=== PATIENT | female | born 1945 | race Caucasian/White ===

== ENCOUNTER → 2025-01-28 10:00 | Outpatient (BNV) | payer MEDICARE, SELFPAY | PROVIDERS: PCP Student in an Organized Health Care Education/Training Program; Referring Provider Student in an Organized Health Care Education/Training Program; Visit Provider Nurse Practitioner Family | DX: D50.9 Iron deficiency anemia, unspecified (principal); R10.811 Right upper quadrant abdominal tenderness | CPT/HCPCS: 99204 ==

== ENCOUNTER 2025-02-12 07:28 | Outpatient (REF) | payer MEDICARE, SELFPAY ==
--- NOTE | ~2025-02-12 | US_ITS ---
EXAMINATION: US ABDOMEN COMPLETE CLINICAL INFORMATION: Right upper quadrant pain. COMPARISON: None available. TECHNIQUE: Real-time imaging of the abdominal viscera. FINDINGS: PANCREAS: Visualized portions are unremarkable. ABDOMINAL AORTA: The proximal, mid, and distal segments are normal in caliber. INFERIOR VENA CAVA: Visualized portions are normal. LIVER: Liver is mildly increased in size. Right hepatic lobe measures 17.0 cm, and left hepatic lobe measures 11.0 cm. The liver contour is normal. There is diffusely increased hepatic echogenicity, most likely on the basis of steatosis. No focal hepatic lesion. There is no intrahepatic biliary duct dilatation seen. GALLBLADDER: Gallbladder demonstrates numerous layering small intraluminal shadowing gallstones, as well as layering echogenic biliary sludge. No definite wall thickening, or pericholecystic fluid evident. There was a positive sonographic Peoples's sign at the time of examination. COMMON BILE DUCT: Normal in caliber measuring 0.4 cm in diameter. RIGHT KIDNEY: No hydronephrosis. No renal calculi or focal parenchymal lesions. The kidney measures 11.2 cm in maximum dimension. LEFT KIDNEY: No hydronephrosis. No renal calculi or focal parenchymal lesions. The kidney measures 11.2 cm in maximum dimension. SPLEEN: The spleen measures 9.3 cm in maximum dimension. FREE FLUID: None. US/US abdomen complete IMPRESSION: 1. Gallbladder demonstrating numerous intraluminal mobile gallstones and layering echogenic sludge, without definite wall thickening or pericholecystic fluid. Per the technologist, there was a positive sonographic Peoples sign at the time of examination. Findings are suspicious for cholecystitis. 2. There is no biliary dilatation. 3. Diffusely increased hepatic echogenicity with mild hepatic enlargement. This is most likely on the basis of fatty infiltration. No suspicious focal lesion. Electronically signed by: Anastacio Sigala MD 02/12/2025 09:57 AM EDT
--- OUTSIDE RECORDS SUMMARY | 2025-02-12 07:31 | XMS_ITS | Clinical Summary ---
Author Organization [facility] Address [address] [facility] [address] [place] [address] Phone Care Team Providers Care Deicer Inspector Electric Name Role Phone Florin Merritt DO Primary Care Provider [phone] Medications Medication-Free Text Calcium Active Medication-Free Text Folic Acid Active LISINOPRIL-HYDR OCHLOROTHIAZIDE ORAL Active METAXALONE (SKELAXIN ORAL) Acti ve Medication-Free Text B12 Active INSULIN GLARGINE,HUM.RE C.ANLOG (INSULIN GLARGINE SUBQ) Activ e UBIDECARENONE (CO Q-10 ORAL) Activ e OMEGA-3S/DHA/EP A/FISH OIL (OMEGA 3 ORAL) Activ e CHELATED ZINC ORAL Active Medication-Free Text Magnesium Active MONTELUKAST SODIUM (SINGULAIR ORAL) Active Medication-Free Text Vitamin D D3 Active Social History Tobacco Use Types Packs/Day Years Used Date Smoking Tobacco: Never Assessed Education Answer Date Recorded Are you interested in more education? Not on tono e 08/17/2022 Are you concerned about learning? Not on file 08/17/2022 No 08/17/2022 No 08/17/2022 Digital Access Answer Date Recorded No 09/15/2022 No 09/15/2022 No 09/15/2022 Reliable internet access at home? Not on file 09/15/2022 Device with a working camera? Not on file Comments Unknown Sex and Gender Information Value Date Recorded Sex Assigned at Not on file Legal Sex Female 10:07 PM EDT Gender Identity Not on file Sexual Orientation Not on file Last Filed Vital Signs Vital Sign Reading Time Taken Comments Blood Pressure 122/80 05/30/2010 10:22 AM EST Pulse - - Temperature - - Respiratory Rate - - Oxygen Saturation - - Inhaled Oxygen Concentration - - Weight 127 kg (280 lb) 05/30/2010 10:22 AM EST Height 163.2 cm (5' 4.25 ) 05/30/2010 10:[address] Body Mass Index 47.69 05/30/2010 10:22 AM EST Plan of Treatment Health Maintenance Due Date Last Done Comments Adult Td,Tdap Booster 1945 CREATININE LEVEL 1945 LIPID PANEL 1946 POTASSIUM LEVEL 1946 DEPRESSION SCREENING 1958 SMOKING Hx and SMOKELESS TOBACCO SCREENING 08/27/1959 HEPATITIS C SCREENING 1964 PNEUMOCOCCAL VACCINES (50+ years) (1 of 1 - PCV) 1996 ZOSTER VACCINES (1 of 2) 1996 OSTEOPOROSIS SCREENING INITI AL (ONE-TIME) 08/27/2011 RSV VACCINE (1 - 1-dose 75+ series) 2021 INFLUENZA VACCINE (#1) 2024 COVID-19 VACCINE (3 - 2024-2 6 season) 2024 08/02/2020, 08/02/2020 HEPATITIS A VACCINES Aged Out No long er eligible based on patient's age to complete this topic HIB VACCINES Aged Out No longer eligi ble based on patient's age to complete this topic MENINGOCOCCAL VACCINES (ACWY) Aged Out No longer eligible based on patient's age to complete this topic MENINGOCOCCAL VACCINES (B) Aged Out N o longer eligible based on patient's age to complete this topic Medical Devices Not on file Insurance MEDICARE PART A & B [employer] MEDEX SUPPLEMENT MEDICARE PART A & B [employer] MEDEX SUPPLEMENT MEDICARE PART A & B [employer] MEDEX SUPPLEMENT MEDICARE PART A & B [employer] MEDEX SUPPLEMENT MEDICARE PART A & B [employer] MED[employer] SUPPLEMENT MEDICARE PART A & B [employer] MEDEX SUPPLEMENT MEDICARE PART A & B [facility] MEDEX SUPPLEMENT MEDICARE PART A & B [employer] MEDEX SUPPLEMENT MEDICARE PART A & B [employer] MEDEX SUPPLEMENT Care Teams Deicer Inspector Electric Relationship Specialty Start Date End Date Florin Merritt DO [address] [place] [id number] PCP - General 02/07/17 Additional Source Comments The information contained in this document represents components of the legal health record. It is not the complete legal health record.[facility]
--- OUTSIDE RECORDS SUMMARY | 2025-02-12 07:31 | XMS_ITS | Encounter Summary ---
Author Organization [facility] Address [address] [facility] [address] [place] [address] Phone Care Team Providers Care Game Bird Farmer Name Role Phone Florin Merritt DO Primary Care Provider [phone] Encounter Details Date Type Department Care Team (Late st Contact Info) Description 04/02/2019 Procedure Pass [facility] Endoscopy Admitting Dept Virtual Department [address] [place] [address] Social History Tobacco Use Types Packs/Day Years Used Date Smoking Tobacco: Never Assessed Comments Unknown Sex and Gender Information Value Date Recorded Sex Assigned at Not on file Legal Sex Female 10:07 PM EDT Gender Identity Not on file Sexual Orientation Not on file documented as of this encounter Plan of Treatment Not on file documented as of this encounter Visit Diagnoses Not on filedocumented in this encounter Care Teams Game Bird Farmer Relationship Specialty Start Date End Date Florin Merritt DO [address] [place] [address] [email or web address] PCP - General 02/07/17 documented as of this encounter Additional Source Comments The information contained in this document represents components of the legal health record. It is not the complete legal health record.[facility]
--- OUTSIDE RECORDS SUMMARY | 2025-02-12 07:32 | XMS_ITS | Data Portability ---
Author Organization [place] - [facility], [facility] Address [address] [address] Care Team Providers Care Grocery Buyer Name Role Phone PRASHANTH BUITRAGO Primary Care Provider Assessment Encounter Date Assessment Date Assessment LastModified by Organization Details LastModified Time 06/10/2024 06/10/2024 Patient with apparent prolonged left-sided middle ear effusion which appears to be in the process of resolving. She has very mild residual fluid in the left middle ear space, with an otherwise aerated middle ear space. Nasopharyngoscopy today has ruled out any nasopharyngeal or eustachian tube pathology. Audiometric testing today shows resolution of the previously noted conductive component of the hearing loss in the left ear. She has baseline sensorineural hearing loss bilaterally. Her speech discrimination has also improved significantly, now 100% bilaterally. At this point I would not recommend any specific additional intervention as the remainder of the fluid will likely disperse on its own. I think she would be a good candidate to consider a new set of binaural hearing aids. I given her a copy of her audiogram and medical clearance to return to her tour manager at [facility] to discuss this in more detail. She may follow-up with me as needed. [email or web address] Not available 06/10/2024 17:10:09 Plan of Treatment Reminders Order Date Submit Date Provider Last Modified By Organization Details Last Modified Time Details Appointments None record ed. Lab None record ed. Referral None record ed. Procedures None record ed. Surgeries None record ed. Imaging None record ed. Medication Orders None record ed. Patient TargetsNo targets recorded. Patient InstructionsNo instructions recorded. Reason for Referral None Reported. Results Created Date Observation Date Name Description Value Unit Range Abnormal Flag Note LastModifiedBy Organization Detail LastModifiedTime 02/20/20 25 audio gram No observ ation record ed. BARCODE Not Available 2024 10:19:01 06/11/1903/16/2024 audio gram No observ ation record ed. [email or web address] Not Available 05/24 10:31:22 06/11/1903/16/2024 audio gram No observ ation record ed. [email or web address] Not Available 05/24 10:36:10 Result Notes None recorded. Problems Name Problem SNOMED Code Status Onset Date Resolution Date Notes Provider Name and Address Organization Details Recorded Time Deviated nasal septum 273576227 Active 2017 Deviated nasal septum; Note: Date Diagnosed : 10/16/2017 10:07 AM (J34.2) Not Available [facility] 4 02:32:02 Nasal congestio n 76578734 Active 2017 Nasal congestio n; Note: Date Diagnosed : 10/16/2017 10:04 AM (R09.81) Not Available [facility] 4 02:31:51 Allergic rhinitis 63850140 Active 2017 Other allergic rhinitis; Note: Date Diagnosed : 10/16/2017 10:10 AM (J30.89) Not Available [facility] 4 02:31:51 Asthma 369208191 Active 2017 Other asthma; Note: Date Diagnosed : 10/16/2017 10:10 AM (J45.998) Not Available [facility] 4 02:31:50 Snoring 96772515 Active 2017 Snoring; Note: Date Diagnosed : 10/16/2017 10:10 AM (R06.83) Not Available [facility] 4 02:32:11 Chronic serous otitis media of left ear 305511768 Active 2024 OBDULIA RUBIO MD [address] [place], [place] [address] [place], [address] , [facility] - [facility] 5 15:45:15 Dysfuncti on of left eustachia n tube 38121310721 46947 Active 2024 OBDULIA RUBIO MD [address] [place] [address],[place] [address], [address] , [facility] - [facility] 5 15:45:22 Sensorine ural hearing loss of bilateral ears 529595848 Active 2024 TIM KAMARA, AUD [address] [facility],[place] [address], [facility] [place], [address] , [facility] 5 16:15:15 Problem Notes None recorded. Procedures Surgical History Date Name Laterality Status Provider Name and Address Organization Details Recorded Time 025 Air & Speech Audio with Tymps - 97303, 54913 & 06255 completed TIM KAMARA, [facility] [address] [facility],[place] [address], [place], [address], [facility] [place] 06/10/2024 16:14:31 025 Fiberoptic Nasopharyngoscopy completed OBDULIA RUBIO MD [address] [place] [address],[place] [address], [place], [address], [facility] 06/10/2024 15:41:59 Imaging Results None recorded. Procedure Notes None recorded. Medical Equipment None Reported. Allergies Allergen ID Allergen Name Allergen Category Reaction Reaction Severity Criticality Documentation Date Start Date Code Code System Note Provider Name and Address Organization Details Recorded Time 389608 Januvia medicatio n Not available Not available Not available 06/10/2024 92860 6 RxNorm Freda aragon [facility] 5 15:09:51 80896 Product containin g penicilli n (product) medicatio n other Not available Not available 09/03/2023 13523 8001 SNOMED React ion: unkno wn, unspe cifie d;; Not Available [facility] 4 01:02:18 65558 cephalexi n monohydra te medicatio n other Not available Not available 09/03/2023 33650 8 RxNorm React ion: unkno wn, unspe cifie d;; Not Available [facility] 4 01:02:21 30451 Substance with sulfonami de structure and antibacte rial mechanism of action (substanc e) medicatio n other Not available Not available 09/03/2023 79673 8003 SNOMED React ion: unkno wn, unspe cifie d;; Not Available [facility] 01:[facility]23 Medications Name Sig Start Date Stop Date Status Note LastModified by Organization Details LastModified Time nystatin 100,000 unit/mL oral suspensio n 06/10 completed Not Available Not Available Not Available lisinopri l 20 mg-hydroc hlorothia zide 12.5 mg tablet active Not Available Not Available No t Available azithromy nick 250 mg tablet 06/10 completed Not Available Not Available Not Available erythromy nick 5 mg/gram (0.5 %) eye ointment 06/10 completed Not Available Not Available Not Available polymyxin B sulfate 10,000 unit-trim ethoprim 1 mg/mL eye drops 06/10 completed Not Available Not Available Not Available aspirin 81 mg chewable tablet active Medicati on ID: [id number] B rand Name: aspirin Send Method: E-Prescr ibed Sub s Allowed: subs OK Medic ationGen ericName : aspirin Not Available Not Available Not Available hydrochlo rothiazid e 25 mg tablet active Not Available Not Available Not Available albuterol sulfate HFA 90 mcg/actua tion aerosol inhaler 06/10 completed Not Available Not Available Not Available fluticaso ne propionat e 50 mcg/actua tion nasal spray,carmine pension 2 puff into both nostrils once a day active Not Available Not Available No t Available doxycycli ne hyclate 100 mg tablet 06/10 completed Not Available Not Available Not Available Vitamin B-12 1,000 mcg tablet 06/10 completed Medicati on ID: [id number] B rand Name: Vitamin B-12 Sen d Method: E-Prescr ibed Sub s Allowed: subs OK Medic ationGen ericName : Vitamin B-12 Not Available Not Available Not Available Lantus Solostar U-100 Insulin 100 unit/mL (3 mL) subcutane ous pen active Not Available Not Available Not Available CoQ-10 30 mg capsule active Medicati on ID: [id number] B rand Name: CoQ-10 S end Method: E-Prescr ibed Sub s Allowed: subs OK Medic ationGen ericName : CoQ-10 Not Available Not Available Not Available BD Yennifer 2nd Gen Pen Needle 32 gauge x active Not Available Not Available Not Available Vitals Date Recorded Body height Body mass index (BMI) Body weight Provider Name and Address Organization Details Last Updated DateTime 06/10/2024 162.56 cm 45.5 kg/m2 461194.98 g Freda Daigle [place] - [facility] 06/10/2024 15:09:39 Social History None recorded. Functional Status None recorded. Mental Status None recorded. Family History Nothing Reported. Medical History Condition Response Diabetes Y Arthritis Y Anxiety Y Hypertension Y Depression Y Asthma Y Gynecological HistoryNo gynecological history recorded. Obstetrics History GPAL:G 0 P 0 0 0 0 Past Encounters Encounter ID Performer Location Encounter Start Date Encounter Closed Date Diagnosis/Indication Diagnosis SNOMED-CT Code Diagnosis ICD10 Code Diagnosis IMO Codes Diagnosis Note [id number] OBDULIA RUBIO MD [facility] [address] [address] 06/10/2024 13:36:22 06/10/2024 16:31:08 Chronic serous otitis media of left ear 462064602 H65.22 Dysfunctio n of left eustachian tube 8807809705 291063 H69.92 Sensorineu ral hearing loss of bilateral ears 669054657 H90.3 Right Ear:Mild to moderate SNHL with excellent speech discrimina tion.Type As tympanogra m.Left Ear:Mild to moderate SNHL with excellent speech discrimina tion.Type Cs tympanogra m. [id number] VIJAY MCCLURE [facility] [address] [address] 06/10/2024 15:53:49 06/11/2024 07:42:31 Dysfunction of left eustachian tube 6191083040 128681 H69.92 Right Ear:Mild to moderate SNHL with excellent speech discrimina tion.Type As tympanogra m.Left Ear:Mild to moderate SNHL with excellent speech discrimina tion.Type Cs tympanogra m. Sensorineu ral hearing loss of bilateral ears 557404450 H90.3 Health Concerns Section Related Observation LastModified by Organization Detai ls LastModified Time None Recorded Concern Status LastModified by Organization Details LastModified Time None Recorded Advance Directives Directive None Recorded Payers Insurance Date Sequence Insurance Name Policy Number Policy Lawrence Covered Member ID Lawrence Member ID Guarantor Name 06/10/2024 2 [place] [id number] Yoana Tse [id number] Yoana Tse 06/10/2024 1 [place] [facility] Yoana Tse [id number] Yoana Tse Notes Date Note Type Note Provider Name and Address Organization Details Recorded Time 06/10/2024 text/html 78-year-old female referred by her tour manager at [facility] for evaluation of recent audiometric testing. Patient has a baseline mild to moderately severe sensorineural hearing loss with a new additional conductive component affecting the left ear only. She has been noticing left-sided hearing loss for about a year. Flat tympanometry noted during audiometric testing in December and February 2024 indicative of middle ear abnormality. Incidentally, patient did have audiometric testing through our office back in 2010 which showed symmetric high-frequency sensorineural hearing loss with no conductive component in either ear, and the presence of normal tympanometry. Patient thinks that the hearing may have gotten a little better since her last hearing test. Patient has some old hearing aids dispensed in 2010 which are inadequate for her current level of hearing loss based on her discussion with her tour manager at [facility]. Currently using OTC hearing aid in the right ear with marginal benefit. OBDULIA RUBIO MD [address] [place] [address], [address], [facility] - [facility] 06/10/2024 17:11:15 OBGyn Episode No OBEpisode recorded.
--- OUTSIDE RECORDS SUMMARY | 2025-02-12 07:32 | XMS_ITS | Encounter Summary ---
Author Organization [facility] Address [address] [place] [address] Phone Care Team Providers Care Ironworker Apprentice Name Role Phone Florin Merritt DO Primary Care Provider [phone] Encounter Details Date Type Department Care Team (Late st Contact Info) Description 03/13/2019 Ancillary Orders Virtual Department [address] [place] [address] Ren Canchola MD [address] [place] [address] [email or web address] Abdominal pain, epigastric Social History Tobacco Use Types Packs/Day Years Used Date Smoking Tobacco: Never Assessed Comments Unknown Sex and Gender Information Value Date Recorded Sex Assigned at Not on file Legal Sex Female 10:07 PM EDT Gender Identity Not on file Sexual Orientation Not on file documented as of this encounter Plan of Treatment Not on file documented as of this encounter Results * US ABDOMEN LIMITED RIGHT UPPER QUADRANT (03/26/2019 9:46 AM EST) Anatomical Region Laterality Modality Abdomen Ultrasound 03/26/2019 2:14 PM EST Impressions 03/26/2019 2:16 PM EST Cholelithiasis without signs of acute cholecystitis or biliary obstruction. Chronic hepatic steatosis. POS [id number] Narrative 03/26/2019 2:16 PM EST Compare to CT abdomen 05/20/2007 Limited right upper quadrant exam. Multiple subcentimeter gallstones are present. No gallbladder wall thickening, hyperemia or pericholecystic fluid. Negative sonographic Peoples sign. No biliary dilatation. CBD 5 mm. No obvious choledocholithiasis. Echogenic liver consistent with steatosis as was apparent on the CT scan in 2007. No focal liver lesions or enlargement. Pancreas reasonly well-visualized and sonographically normal. No right-sided hydronephrosis. Procedure Note Edmundo Ramey MD - 03/26/[address] abdomen 05/20/2007 Limited right upper quadrant exam. Multiple subcentimeter gallstones are present. No gallbladder wallthickening, hyperemia or pericholecystic fluid. Negative sonographicMurphy sign. No biliary dilatation. CBD 5 mm. No obvious choledocholithiasis. Echogenic liver consistent with steatosis as was apparent on the CT scanin 2007. No focal liver lesions or enlargement. Pancreas reasonly well-visualized and sonographically normal. No right-sided hydronephrosis. IMPRESSION: Cholelithiasis without signs of acute cholecystitis or biliaryobstruction. Chronic hepatic steatosis. POS [id number] Ren Canchola MD IM US ABDOMEN Final Resu lt documented in this encounter Visit Diagnoses Diagnosis Abdominal pain, epigastric Abdominal pain, epigastric documented in this encounter Care Teams Ironworker Apprentice Relationship Specialty Start Date End Date Florin Merritt DO [address] [place] [address] [email or web address] PCP - General 02/07/17 documented as of this encounter Additional Source Comments The information contained in this document represents components of the legal health record. It is not the complete legal health record.[facility]
--- OUTSIDE RECORDS SUMMARY | 2025-02-12 07:32 | XMS_ITS | Clinical Summary ---
Author Organization [facility] Address [address] [place] [address] Care Team Providers Care Tooth Cutter Name Role Phone Unavailable Primary Care Provider Unavailabl e Social History Tobacco Use Types Packs/Day Years Used Date Smoking Tobacco: Never Assessed Comments Unknown Sex and Gender Information Value Date Recorded Sex Assigned at Not on file Legal Sex Female 2:05 PM EDT Gender Identity Not on file Sexual Orientation Not on file Plan of Treatment Health Maintenance Due Date Last Done Comments Advance Care Planning 1945 Hepatitis C Virus Screening 1945 DTaP/Tdap/Td Vaccines (1 - Tdap) 1965 Pneumococcal Vaccines 50+ (1 of 1 - PCV) 1996 Zoster (Shingles) Vaccine (1 of 2) 1996 RSV Vaccine 50 years and old er and Patients (1 - 1-dose 75+ series) 2021 COVID-19 Vaccine (2023-2 5 season) 2024 Hepatitis B Vaccines Aged Out No long er eligible based on patient's age to complete this topic
--- OUTSIDE RECORDS SUMMARY | 2025-02-12 07:32 | XMS_ITS | Clinical Summary ---
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 René Florin Bergman Primary Care Provider [phone] Allergies Active Allergy Reactions Criticality Noted Date Comments Cephalexin Anaphylaxis High 06/12/2024 Penicillin G Anaphylaxis High 06/12/2024 Medical History Medical History Date Comments Diabetes mellitus ([facility] V24, [facility] V28) CHF (congestive heart failure) ([facility] V24, [facility] V28) Hypertension Social History Tobacco Use Types Packs/Day Years Used Date Smoking Tobacco: Never Smokeless Tobacco: Never Tobacco Cessation:Counseling Given: Not Answered Alcohol Use Standard Drinks/Week Comments Never 0 (1 standard drink = 0.6 oz pur e alcohol) Comments Unknown Sex and Gender Information Value Date Recorded Sex Assigned at Female 06/12/2024 9:04 PM EST Legal Sex Female 11:15 AM EST Gender Identity Female 06/12/2024 9:04 PM EST Sexual Orientation Straight 06/12/2024 9: 04 PM EST Obstetrics History Last Filed Vital Signs Vital Sign Reading Time Taken Comments Blood Pressure 136/71 06/12/2024 8:51 PM EST Pulse 91 06/12/2024 8:51 PM EST Temperature 36.6 C (97.9 F) 06/12/2024 8:51 PM EST Respiratory Rate 18 06/12/2024 11:44 AM EST Oxygen Saturation 97% 06/12/2024 8:51 PM EST Inhaled Oxygen Concentration - - Weight 120 kg (265 lb) 06/12/2024 11:44 AM EST Height 162.6 cm (5' 4 ) 06/12/2024 11:44 AM EST Body Mass Index 45.49 06/12/2024 11:44 AM EST Plan of Treatment Health Maintenance Due Date Last Done Comments Diabetes: Annual Foot Exam 1955 Diabetes: Annual Retina Eye Exam 1955 Zoster Vaccines (2 of 3) 10/08/2011 08/13/2011 RSV Immunization Adult Patients (1 - 1-dose 75+ series) 2021 Depression Screening 04/22/2024 Cholesterol Screening (Lipid Panel) 06/12/2024 Falls Risk Assessment 06/12/2024 Hepatitis C Screening 06/12/2024 Medicare Annual Wellness Visit 06/12/2024 Osteoporosis Screening (Bone Density Screening) 06/12/2024 Social Influencers of Health Screening 06/12/2024 Diabetes: Annual Urine Albumin-Creatinine Ratio (uACR) 06/13/2024 Diabetes: Blood Sugar Control Test (HGBA1C) 06/13/2024 COVID-19 Vaccine ( season) 2024 01/25/2023, 11/28/2021, 03/17/2021, Additional history exists Influenza Vaccine (#1) 2024 DTaP,Tdap,and Td Vaccines (3 - Td or Tdap) 03/14/2025 03/14/2015, 05/05/2003 Diabetes: Annual GFR (Glomerular Filtration Rate) 06/12/2025 06/12/2024 Hypertension/CHF/CAD Annual BMP Blood Test 06/12/2025 06/12/2024 Pneumococcal Vaccine: 50+ Years Completed 12/05/2022, 10/29/2014, 12/21/2011, Additional history exists HIB Vaccines Aged Out No longer eligi ble based on patient's age to complete this topic HPV Vaccines Aged Out No longer eligi ble based on patient's age to complete this topic Hepatitis A Vaccines Aged Out No long er eligible based on patient's age to complete this topic Hepatitis B Vaccines Aged Out No long er eligible based on patient's age to complete this topic IPV Vaccines Aged Out No longer eligi ble based on patient's age to complete this topic MMR Vaccines Aged Out No longer eligi ble based on patient's age to complete this topic Meningococcal ACWY Vaccine Aged Out N o longer eligible based on patient's age to complete this topic Meningococcal B Vaccine Aged Out No l onger eligible based on patient's age to complete this topic RSV Immunization Patients Under 20 months Aged Out No longer eligible based on patient's age to complete this topic Varicella Vaccines Aged Out No longer eligible based on patient's age to complete this topic Procedures Procedure Name Priority Date/Time Associated Diagnosis Comments COMPREHENSIVE METABOLIC PANEL STAT 06/12/2024 11:37 AM EST from Last 3 Months or Most Recently Relevant to Health Maintenance Results * (ABNORMAL) Comprehensive metabolic panel (06/12/2024 11:37 AM EST) Sodium 135 133 - 145 mmol/L LAB CHEMISTRY METHOD 06/12/2024 12:24 PM [facility] Potassium 4.0 3.5 - 5.5 mmol/L LAB CHEMISTRY METHOD 06/12/2024 12:24 PM [facility] Chloride 100 96 - 110 mmol/L LAB CHEMISTRY METHOD 06/12/2024 12:24 PM [facility] CO2 26 21 - 32 mmol/L LAB CHEMISTRY METHOD 06/12/2024 12:24 PM [facility] Anion Gap 9 3 - 11 LAB CHEMISTRY METHOD 06/12/2024 12:24 PM [facility] Glucose 184(H) 70 - 100 mg/dL LAB CHEMISTRY METHOD 06/12/2024 12:24 PM [facility] BUN 19 5 - 25 mg/dL LAB CHEMISTRY METHOD 06/12/2024 12:24 PM [facility] Creatinine 0.83 0.50 - 1.10 mg/dL LAB CHEMISTRY METHOD 06/12/2024 12:24 PM [facility] eGFR 73 >=60 mL/min/1. 73m2 LAB CHEMISTRY METHOD 06/12/2024 12:24 PM [facility] Comment:Calculation based on the Chronic Kidney Disease Epidemiology Collaboration (CKD-EPI) equation refit without adjustment for race. BUN/Creatinine Ratio 22.9 LAB CHEMISTRY METHOD 06/12/2024 12:24 PM [facility] Calcium 9.3 8.5 - 10.5 mg/dL LAB CHEMISTRY METHOD 06/12/2024 12:24 PM [facility] AST (SGOT) 12 10 - 42 unit/L LAB CHEMISTRY METHOD 06/12/2024 12:24 PM [facility] ALT (SGPT) 22 10 - 60 unit/L LAB CHEMISTRY METHOD 06/12/2024 12:24 PM [facility] Alkaline Phosphatase 96 42 - 121 unit/L LAB CHEMISTRY METHOD 06/12/2024 12:24 PM [facility] Total Protein 7.5 6.0 - 8.0 g/dL LAB CHEMISTRY METHOD 06/12/2024 12:24 PM [facility] Albumin 3.3 3.2 - 5.0 g/dL LAB CHEMISTRY METHOD 06/12/2024 12:24 PM [facility] Total Bilirubin 0.7 0.0 - 1.4 mg/dL LAB CHEMISTRY METHOD 06/12/2024 12:24 PM [facility] Blood Venous blood specimen / Unknown Venipuncture / Unknown 06/12/2024 11:37 AM EST 06/12/2024 11:45 AM EST Trav Bean MD LAB BLOOD ORDERABLES Charu l Result [facility] [address] [place] [address], from Last 3 Months or Most Recently Relevant to Health Maintenance Insurance MEDICARE [facility] Care Teams Sheet Metal Production Worker Relationship Specialty Start Date End Date Florin Merritt DO [address] [place] [address] PCP - General Family Medicine 06/12/24
== END 2025-02-12 07:29 | disposition home or self-care (01) ==
LOC: HO.US 07:28
PROVIDERS: PCP Student in an Organized Health Care Education/Training Program; Visit Provider Nurse Practitioner Family
DX: R10.11 Right upper quadrant pain (principal); D64.9 Anemia, unspecified
CPT/HCPCS: 76700

== ENCOUNTER → 2025-02-12 07:31 | Outpatient (BNV) | payer MEDICARE, SELFPAY | PROVIDERS: PCP Student in an Organized Health Care Education/Training Program; Visit Provider Radiology Diagnostic Radiology | DX: R10.11 Right upper quadrant pain (principal) | CPT/HCPCS: 76700 ==